=== PATIENT | male | born 1980 | race Caucasian/White ===

== ENCOUNTER 2019-09-28 23:30 | Emergency (ER) | payer BC ==
--- NOTE | 2019-09-29 00:17 | EDM.PDOC ---
ED HPI GENERAL MEDICAL PROBLEM - General Chief Complaint: Respiratory Problem Stated Complaint: cough Time Seen by Provider: 09/28/19 23:48 Source of Information: Reports: Patient History Limitations: Reports: No Limitations - History of Present Illness INITIAL COMMENTS - FREE TEXT/NARRATIVE: Is a 39-year-old male. While driving home tonight he had a coughing spell he felt something pop in the left rib area. Since that time he has been having sharp pain there when he tries to cough or twist or bend. So he comes to the ER for evaluation. He apparently is been treated for this cough for the last couple of weeks with some steroids and other medications though he is not over his cough at this time. Denies any fever or chills he denies any other acute symptoms. He states he just came because of the sharp pain in his ribs that keeps him from doing things. Left Lower Breast Pain Score (Numeric/FACES): 6 - Related Data Allergies Allergy/AdvReac Type Severity Reaction Status Date / Time No Known Allergies Allergy Verified 09/28/19 23:42 Past Medical History - Past Surgical History Musculoskeletal Surgical History: Reports: Other (See Below) Other Musculoskeletal Surgeries/Procedures:: knee surgery Social & Family History - Tobacco Use Smoking Status *Q: Never Smoker Second Hand Smoke Exposure: No - Caffeine Use Caffeine Use: Reports: Energy Drinks, Soda - Recreational Drug Use Recreational Drug Use: No ED ROS GENERAL - Review of Systems Review Of Systems: See Below Constitutional: Denies: Fever, Chills HEENT: Reports: Other (Upper respiratory symptoms) Respiratory: Reports: Shortness of Breath, Wheezing, Cough, Other (Left rib pain now) Cardiovascular: Reports: No Symptoms Endocrine: Reports: No Symptoms GI/Abdominal: Denies: Abdominal Pain, Diarrhea, Nausea, Vomiting : Reports: No Symptoms Musculoskeletal: Reports: Other (Left rib pain now) Skin: Reports: No Symptoms Neurological: Reports: No Symptoms Psychiatric: Reports: No Symptoms Hematologic/Lymphatic: Reports: No Symptoms ED EXAM, GENERAL - Physical Exam Exam: See Below Exam Limited By: No Limitations General Appearance: Alert, WD/WN, No Apparent Distress Eye Exam: Bilateral Eye: Normal Inspection Ears: Normal External Exam Nose: Normal Inspection Throat/Mouth: Normal Inspection, Normal Lips, Normal Voice, No Airway Compromise Head: Normocephalic Neck: Supple Respiratory/Chest: Crackles, Wheezing, Other (Has wheezing and rhonchi in the right base, he is splinting on the left side, he has pain around the fifth and sixth rib laterally on palpation). No: Respiratory Distress Cardiovascular: Regular Rate, Rhythm, No Murmur GI/Abdominal: Soft, Non-Tender Back Exam: Full Range of Motion Extremities: Normal Inspection, Normal Range of Motion Neurological: Alert, Oriented Psychiatric: Normal Affect, Normal Mood Skin Exam: Warm, Dry Course - Vital Signs Last Recorded V/S: Last Vital Signs Temp 98.5 F 09/28/19 23:35 Pulse 90 09/28/19 23:35 Resp 20 09/28/19 23:35 BP 161/108 H 09/28/19 23:35 Pulse Ox 93 L 09/28/19 23:35 - Orders/Labs/Meds Orders: Active Orders 24 hr Category Date Time Status Ribs 2V w Chest Lt [CR] Stat Exams 09/29/19 00:05 Taken - Radiology Interpretation Free Text/Narrative:: X-rays do not show any acute fractures, the lung manzano do not suggest any infiltrates. - Re-Assessments/Exams Free Text/Narrative Re-Assessment/Exam: 09/29/19 00:47 I spoke to the patient regarding the x-ray results. Even though I do not see a fracture he is acting like one which would suggest may be a cartilage tear or he could still have a nondisplaced fracture of the rib and we just cannot see it at this time. I will place him on a muscle relaxer and something for pain and he is to follow-up with his family doctor this coming week. Departure - Departure Time of Disposition: 00:56 Disposition: Home, Self-Care 01 Condition: Fair Clinical Impression: Rib pain on left side, Muscle spasm, Cartilage tear - Discharge Information *PRESCRIPTION DRUG MONITORING PROGRAM REVIEWED*: Yes *COPY OF PRESCRIPTION DRUG MONITORING REPORT IN PATIENT SHAWANDA: No Instructions: Chest Wall Pain, [id number], Muscle Cramps and Spasms Referrals: PCP,None [Primary Care Provider] - Forms: ED Department Discharge Additional Instructions: Obtain your medicines from the [facility] in the lobby, use the Flexeril as needed for spasms and the Percocet for pain, you need to follow-up with your doctor later this week for recheck and possible re-x-ray of your ribs, if the radiologist who reads the x-rays sees something different than what I told you then we will call you, use a pillow and hold it next to your ribs when you cough to help with the pain and stabilize the ribs, sleep in an upright position which will make your ribs feel better, no heavy lifting or straining for the next 2 to 4 weeks, return to the ER if needed Sepsis Event Note - Evaluation Sepsis Screening Result: No Definite Risk - Focused Exam Vital Signs: Vital Signs Temp Pulse Resp BP Pulse Ox 09/28/19 23:35 98.5 F 90 20 161/108 H 93 L Date Exam was Performed: 09/29/19 Time Exam was Performed: 00:56 - My Orders Last 24 Hours: My Active Orders 09/29/19 00:05 Ribs 2V w Chest Lt [CR] Stat - Assessment/Plan Last 24 Hours: My Active Orders 09/29/19 00:05 Ribs 2V w Chest Lt [CR] Stat
--- NOTE | 2019-09-29 09:31 | CR ---
Chest and left ribs: PA view of the chest was obtained as well as 4 views of the left ribs. Comparison: No previous study. Heart size and mediastinum are normal. Lungs are clear with no acute parenchymal change. No discrete fracture or other left-sided rib abnormality is appreciated. Impression: 1. No discrete left-sided rib abnormality is identified. 2. Nothing acute is seen on accompanying PA chest x-ray. Diagnostic code #1 This report was dictated in [place] Standard Time
== END 2019-09-29 01:08 | disposition home or self-care (01) ==
LOC: JD.ED 23:30
DX: S23.41XA Sprain of ribs, initial encounter (principal); X58.XXXA Exposure to other specified factors, initial encounter
CPT/HCPCS: 71101-26-LT; 71101-LT; 99283; 99283-25

== ENCOUNTER 2021-09-01 09:15 | Emergency (ER) | payer BC ==
[2021-09-01] MEDS ORDERED: LORazepam 2 MG/ML SDV IVPUSH ONE (09:50)
[2021-09-01] MEDS ORDERED: Ketorolac 30 MG/ML SDV IVPUSH ONE (09:50)
[2021-09-01] MEDS ORDERED: Sodium Chloride 0.9% 1,000 ML IV ONE (09:50)
[2021-09-01] MEDS ORDERED: FLU Vacc QS2021-22 36MOS UP/PF 60 MCG/0.5 ML Syringe IM ONE (10:30)
[2021-09-01 11:03] LABS: CORONAVIRUS COVID-19 NAA NEGATIVE (NEGATIVE)
--- NOTE | 2021-09-01 11:31 | EDM.PDOCBH ---
ED HPI GENERAL MEDICAL PROBLEM - General Chief Complaint: Drug or Alcohol Abuse Stated Complaint: DETOX Time Seen by Provider: 09/01/21 09:40 Source of Information: Reports: Patient, Family History Limitations: Reports: No Limitations - History of Present Illness INITIAL COMMENTS - FREE TEXT/NARRATIVE: he has a 40-year-old male who abuses both fentanyl and cocaine who is here for detoxing symptoms. Patient states he has not used anything since yesterday morning. He is feeling tremulous and has been having vomiting and diarrhea. Patient denies any abdominal pain but is having some fever and chills and is complaining of some body aches which are mainly lower extremity and back. Patient has a mild headache. He states he has been abusing fentanyl for many years. These are not prescribed medications. He denies any cough or dysuria. Duration: Day(s): (one) Location: Reports: Generalized Quality: Reports: Ache Improves with: Reports: None Worsens with: Reports: None Associated Symptoms: Reports: Fever/Chills, Loss of Appetite, Malaise. Denies: Cough, Headaches, Shortness of Breath Headache Pain Score (Numeric/FACES): 7 - Related Data Allergies Allergy/AdvReac Type Severity Reaction Status Date / Time No Known Allergies Allergy Verified 09/01/21 09:39 Home Meds: Home Meds LORazepam [Ativan] 1 mg PO Q6HR PRN 7 Days #20 tablet 09/01/21 [Rx] Ondansetron [Zofran ODT] 4 mg PO Q6H PRN #10 tab.dis 09/01/21 [Rx] Past Medical History HEENT History: Reports: None Cardiovascular History: Reports: None Respiratory History: Reports: None Gastrointestinal History: Reports: None Genitourinary History: Reports: None Musculoskeletal History: Reports: Fracture Other Musculoskeletal History: right leg Neurological History: Reports: None Psychiatric History: Reports: Addiction Endocrine/Metabolic History: Reports: None Hematologic History: Reports: None Immunologic History: Reports: None Oncologic (Cancer) History: Reports: None Dermatologic History: Reports: None - Infectious Disease History Infectious Disease History: Reports: Chicken Pox - Past Surgical History HEENT Surgical History: Reports: None Musculoskeletal Surgical History: Reports: Other (See Below) Other Musculoskeletal Surgeries/Procedures:: Plate in right leg Social & Family History - Family History Family Medical History: No Pertinent Family History - Tobacco Use Tobacco Use Status *Q: Never Tobacco User Second Hand Smoke Exposure: Yes - Caffeine Use Caffeine Use: Reports: Soda - Recreational Drug Use Recreational Drug Use: Yes Drug Use in Last 12 Months: Yes Recreational Drug Type: Reports: Cocaine, Fentanyl, Marijuana/Hashish Recreational Drug Use Frequency: Daily ED ROS GENERAL - Review of Systems Review Of Systems: Comprehensive ROS is negative, except as noted in HPI. Constitutional: Reports: Fever, Chills, Malaise, Fatigue Respiratory: Denies: Shortness of Breath Cardiovascular: Denies: Chest Pain GI/Abdominal: Reports: Diarrhea, Vomiting Psychiatric: Reports: Anxiety. Denies: Agitation ED EXAM, BEHAVIORAL HEALTH - Physical Exam Exam: See Below Exam Limited By: No Limitations General Appearance: Alert, Mild Distress Head: Atraumatic Neck: Normal Inspection, Supple Respiratory/Chest: No Respiratory Distress, Lungs Clear, Normal Breath Sounds GI/Abdominal: Normal Bowel Sounds, Soft, Non-Tender Back Exam: Normal Inspection Extremities: Normal Inspection Neurological: Alert, Normal Mood/Affect Psychiatric: Alert, Normal Affect Skin Exam: Warm, Dry COURSE, BEHAVIORAL HEALTH COMP - Course Vital Signs: Last Vital Signs Temp 97.9 F 09/01/21 09:30 Pulse 90 09/01/21 09:30 Resp 20 09/01/21 09:30 BP 148/104 H 09/01/21 09:30 Pulse Ox 100 09/01/21 09:30 Patient's Covid and influenza came back negative. He was given a liter of fluid with some antiemetics and Toradol. He is feeling only marginally better. I will give him a prescription for some lorazepam and Zofran. He is planning to continue with his detox at his mother's house and they are planning to go to [place] in the near future. Patient is aware he could be admitted to [facility] detox center if he wished to but does not want this option at this time. Orders, Labs, Meds: Active Orders 24 hr Category Date Time Status Vaccine to be Administered/Admin Charge [RC] ASDIRECTED Care 09/01/21 10:13 Active DRUG SCREEN, URINE [URCHEM] Stat Lab 09/01/21 09:50 Ordered Laboratory Tests 09/01/21 09/01/21 Range/Units 09:55 09:58 Ethyl Alcohol 0.00 (0.00) gm% Influenza Type A RNA Negative (NEGATIVE) Influenza Type B RNA Negative (NEGATIVE) SARS-CoV-2 RNA ([facility]) Negative (NEGATIVE) Medications Discontinued Medications Generic Name Dose Route Start Last Admin Trade Name Kayleen PRN Reason Stop Dose Admin Sodium Chloride 1,000 mls @ 1,000 mls/hr 09/01/21 09:50 09/01/21 10:13 Normal Saline IV 09/01/21 10:49 1,000 mls/hr ONETIME ONE Administration Influenza Virus Vaccine 60 mcg 09/01/21 10:30 Flu Vacc [id number] 36mos Up/Pf 60 Mcg/0.5 Ml Syringe IM 09/01/21 10:31 .ONCE ONE Ketorolac Tromethamine 30 mg 09/01/21 09:50 09/01/21 10:14 Ketorolac 30 Mg/Ml Sdv IVPUSH 09/01/21 09:51 30 mg ONETIME ONE Administration Lorazepam 1 mg 09/01/21 09:50 09/01/21 10:14 Lorazepam 2 Mg/Ml Sdv IVPUSH 09/01/21 09:51 1 mg ONETIME ONE Administration Departure - Departure Time of Disposition: 11:31 Disposition: Home, Self-Care 01 Condition: Good Clinical Impression: Drug abuse, Polysubstance abuse - Discharge Information Instructions: Illegal Drug Use Information, Adult Referrals: PCP,None [Primary Care Provider] - Additional Instructions: Zofran as needed [id number] Imodium if indicated. Lorazepam as needed. Go to detox center if he decides is a better option than self detox. Return to ER symptoms are worse. Sepsis Event Note (ED) - Evaluation Sepsis Screening Result: No Definite Risk - Focused Exam Vital Signs: Vital Signs Temp Pulse Resp BP Pulse Ox 09/01/21 09:30 97.9 F 90 20 148/104 H 100 - My Orders Last 24 Hours: My Active Orders 09/01/21 09:50 DRUG SCREEN, URINE [URCHEM] Stat 09/01/21 10:13 Vaccine to be Administered/Admin Charge [RC] ASDIRECTED - Assessment/Plan Last 24 Hours: My Active Orders 09/01/21 09:50 DRUG SCREEN, URINE [URCHEM] Stat 09/01/21 10:13 Vaccine to be Administered/Admin Charge [RC] ASDIRECTED
[2021-09-01] MEDS ORDERED: Ondansetron 4 MG/2 ML SDV IVPUSH ONE (11:52)
== END 2021-09-01 12:05 | disposition home or self-care (01) ==
LOC: JD.ED 09:15
DX: F19.90 Other psychoactive substance use, unspecified, uncomplicated (principal); Z20.822 Contact with and (suspected) exposure to COVID-19; Z23 Encounter for immunization
CPT/HCPCS: 0240U; 36415; 80306; 80307; 90471; 90686; 96374; 96375; 99284; J1885; J2060; J2405; J7030; G0008